=== PATIENT | male | born 1970 | race Caucasian/White ===

== ENCOUNTER 2023-07-05 14:42 | Emergency (ER) | payer OTHER ==
[2023-07-05 14:59] VITALS: BP 128/78; PULSE 95; RESP 18; TEMP 98.3; BMI 28.3
[2023-07-05] MEDS ORDERED: ACETAMINOPHEN 1000 MG/100 ML BAG IVPB ONE (16:18)
[2023-07-05] MEDS ORDERED: LACTATED RINGERS SOLUTION 1000 ML INFUS.BAG IV ONE (16:18)
[2023-07-05] MEDS ORDERED: FAMOTIDINE 20 MG/50 ML IVPB 20 MG/50 ML MG IVPB ONE (16:18)
[2023-07-05] MEDS ORDERED: ONDANSETRON 4 MG/2 ML VIAL IVPUSH ONE (16:18)
[2023-07-05 16:42] LABS: BASO % 0.1 % (0-2.0); HEMOGLOBIN 16.3 GM/dL (11.7-16.9); LYMPH % 7.1 % (8-40); MCH 30.5 pg (25.7-33.7); MCHC 34.7 g/dl (32.0-35.9); MEAN CELL VOLUME 87.9 fl (80-96); MEAN PLT VOLUME 9.6 fl (7.5-11.1); MONO % 4.7 % (3.8-10.2); NEUT % 88.1 % (42.8-82.8); PLATELET COUNT 209 10^3/uL (134-434); RBC 5.36 M/mm3 (4.00-5.60); RDW 13.4 % (11.9-15.9)
[2023-07-05 17:03] LABS: POTASSIUM 3.9 mmol/L (3.5-5.1)
[2023-07-05 17:04] LABS: BLOOD UREA NITROGEN 13.4 mg/dL (7-18); CALCIUM 9.3 mg/dL (8.5-10.1); MAGNESIUM 2.6 mg/dL (1.8-2.4)
[2023-07-05 17:08] LABS: CREATININE 1.2 mg/dL (0.55-1.3)
[2023-07-05 17:09] LABS: BILIRUBIN,TOTAL 0.9 mg/dL (0.2-1)
[2023-07-05 17:10] LABS: TOT PROT 7.8 g/dl (6.4-8.2)
== END 2023-07-05 20:26 | disposition home or self-care (01) ==
LOC: JER 14:42
PROC: 3E033GC Introduction of Other Therapeutic Substance into Peripheral Vein, Percutaneous Approach (ICD-10-PCS; principal; 2023-07-05)
PROC: 3E033GC Introduction of Other Therapeutic Substance into Peripheral Vein, Percutaneous Approach (ICD-10-PCS; 2023-07-05)
PROC: 3E033GC Introduction of Other Therapeutic Substance into Peripheral Vein, Percutaneous Approach (ICD-10-PCS; 2023-07-05)
DX: R10.13 Epigastric pain (principal); R11.2 Nausea with vomiting, unspecified; Z20.822 Contact with and (suspected) exposure to COVID-19
CPT/HCPCS: 0241U-QW; 36415; 71045-TC-FY; 76705-TC; 80053; 83690; 83735; 84484; 85025; 93005; 93010; 99285-25; J0131